=== PATIENT | male | born 1955 | race Caucasian/White ===

== ENCOUNTER 2019-06-25 13:42 | Emergency (ER) | payer BC, SELFPAY ==
[2019-06-25 13:54] VITALS: BP 143/70; PULSE 66; RESP 22; TEMP 37.2; O2SAT 100
--- NOTE | 2019-06-25 14:02 | ED.GENADULT ---
HPI - General Adult General Chief complaint: Upper Respiratory Infection Stated complaint: sinus pressure/tired Time Seen by Provider: 06/25/19 14:03 Source: patient and RN notes reviewed Mode of arrival: ambulatory Limitations: no limitations History of Present Illness HPI narrative: This is a 63 years old male presents to the office for an evaluation of possible sinus infection. Onset about two weeks ago, with head congestion/headache, stuffy nose and alittle cough. Denies fever; however reports feeling achy at night. Symptoms slightly better when he took Mucinex and it got worse again about five days ago. He does not smoke. 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 He did recieved influenza vaccine for the season. Related Data Allergies Allergy/AdvReac Type Severity Reaction Status Date / Time No Known Allergies Allergy Unverified 05/21/17 13:42 Review of Systems Review of Systems: Narrative: CONSTITUTIONAL: Denies fever. Reports achy, chills and malaise EYES: Denies visual changes, redness, discharge. ENT: Denies otalgia. CARDIOVASCULAR: Denies chest pain RESPIRATORY: Denies dyspnea, wheezing GASTROINTESTINAL: Denies abdominal pain, nausea, vomiting, diarrhea. GENITOURINARY: Denies urinary symptoms or discharge SKIN: Denies rash MUSCULOSKELETAL: Denies acute back pain NEUROLOGIC: Denies lightheaded PMFSH Past Medical History Medical History (Updated 06/25/19 @ 14:11 by ILIANA Rosa) BMI 28.0-28.9,adult Colonoscopy planned High cholesterol Hip pain, right Hyperlipidemia, unspecified Hypertension Male erectile dysfunction, unspecified On correction drug therapy Family History Family History Father COPD (chronic obstructive pulmonary disease) Renal failure Emphysema lung Mother Herpes zoster Hodgkins disease Social History Social History (Updated 06/25/19 @ 14:14 by ILIANA Rosa) Smoking status: Never smoker Comments At time of signature, I agree with nursing past medical, surgical, social and family history. There is no relevant family history pertinent to the presenting complaint. Exam Narrative: Exam Narrative: GENERAL: This is a well-nourished, well-developed patient, in no apparent distress. EYES: Sclera clear/white. Vision is grossly intact. EARS: External ears normal, auditory canals clear and without drainage, TMs normal without perforation. Hearing grossly intact. NOSE: External nose normal with no obvious nasal discharge, nares without redness, no rhinorrhea. Sinus tendneress noted THROAT: Mucous membranes moist, posterior pharynx erythema with drainage NECK: Neck supple, non-tender with lymphadenopathy CARDIOVASCULAR: Regular rate and rhythm without murmurs, gallops, or rubs. RESPIRATORY: Clear to auscultation. Breath sounds equal bilaterally. No wheezes, rales, or rhonchi. GASTROINTESTINAL: Abdomen soft, non-tender, nondistended. Bowel sounds are active. No guarding. SKIN: warm, intact with no suspicious lesions or rash, good texture and turgor. NEURO: awake, alert, and oriented to person, place and time. There were no obvious focal neurologic abnormalities. Steady gait [place] Coma Scale Eye Opening: Spontaneous 4 [place] Coma Scale Motor: Obeys Commands 6 [place] Coma Scale Verbal: Oriented 5 Course Vital Signs Vital signs: Vital Signs Temperature 98.9 F 06/25/19 13:54 Pulse Rate 66 06/25/19 13:54 Respiratory Rate 22 H 06/25/19 13:54 Blood Pressure 143/70 H 06/25/19 13:54 Pulse Oximetry 100 06/25/19 13:54 Temperature 98.9 F 06/25/19 13:54 Pulse Rate 66 06/25/19 13:54 Respiratory Rate 22 H 06/25/19 13:54 Blood Pressure 143/70 H 06/25/19 13:54 Pulse Oximetry 100 06/25/19 13:54 Medical Decision Making MDM Narrative Medical decision making narrative: Discharge instructions reviewed with patient, elevated BP noted; recommend follow up with PCP in 1-2week The
== END 2019-06-25 14:18 | disposition home or self-care (01) ==
PROVIDERS: Emergency Provider Nurse Practitioner; PCP Internal Medicine
DX: J00 Acute nasopharyngitis [common cold] (principal); J01.90 Acute sinusitis, unspecified; E78.00 Pure hypercholesterolemia, unspecified; E78.5 Hyperlipidemia, unspecified; I10 Essential (primary) hypertension
CPT/HCPCS: 99213; G0463

== ENCOUNTER 2020-07-11 10:00 | Outpatient (CLI) | payer BC, SELFPAY | END 2020-07-11 10:01 | disposition home or self-care (01) | LOC: ANHCOVIDVC 10:00 | PROVIDERS: PCP Internal Medicine | DX: Z23 Encounter for immunization (principal) | CPT/HCPCS: 0001A; 91300 ==

== ENCOUNTER 2020-08-01 10:13 | Outpatient (CLI) | payer BC, SELFPAY | END 2020-08-01 10:14 | disposition home or self-care (01) | LOC: ANHCOVIDVC 10:13 | PROVIDERS: PCP Internal Medicine | DX: Z23 Encounter for immunization (principal) | CPT/HCPCS: 0002A; 91300 ==

== ENCOUNTER 2022-07-04 00:35 | Day surgery (SDC) | payer BC, SELFPAY ==
[2022-06-20 13:03] VITALS: BMI 27.1
--- NOTE | 2022-07-03 12:59 | P.HP_ITS ---
History of Present Illness History of Present Illness Consent: Risks, benefits, and alternatives have been discussed and questions answered. Patient agrees to proceed with procedure. Chief complaint: hx colon polyps Narrative: Mk Galan is a 66 year old male was referred for colon cancer screening. He had a polyp removed at the time of his last colonoscopy 5 years ago. Review of Systems Review of Systems: All systems reviewed & are unremarkable except as noted in HPI and below PMFSH Past Medical History Medical History BMI 28.0-28.9,adult Colonoscopy planned High cholesterol Hip pain, right Hyperlipidemia, unspecified Hypertension Male erectile dysfunction, unspecified On buttermaker continuous churn drug therapy Family History Family History Father COPD (chronic obstructive pulmonary disease) Renal failure Emphysema lung Mother Herpes zoster Hodgkins disease Father Family history of kidney disease Family history of chronic obstructive pulmonary disease Family history of emphysema Mother Family history of Hodgkin's lymphoma Social History Social History Smoking status: Never smoker Alcohol intake: never Alcohol use details: RARELY Substance use: never Substance use type: does not use Lack of Transportation: No Lack of Food: Never True Current Housing: I Have Housing Concerned About Future Housing: No Difficulty Paying Gas/Electric Bills: No Difficulty Paying for Meds: No Currently Unemployed: No Education: High School Diploma/GED Difficulty w/ Childcare or Family Care: No Living arrangements: with family Spiritual care concerns: No Meds Home Medications and Allergies Home Medications Medication Instructions Recorded Confirmed Type amlodipine 10 mg tablet See Rx Instructions .Route 12/10/21 07/04/22 Rx .COMPLEX #90 tabs simvastatin 40 mg tablet 40 mg PO DAILY #90 tabs 04/15/22 07/04/22 Rx sildenafil (pulm.hypertension) 20 60 mg PO ONCE #60 tabs 04/23/22 07/04/22 Rx mg tablet atenolol 25 mg tablet See Rx Instructions .Route 06/04/22 07/04/22 Rx .COMPLEX #180 tabs Allergies Allergy/AdvReac Type Severity Reaction Status Date / Time No Known Allergies Allergy Verified 07/04/22 06:22 Exam Const: General: alert Orientation/consciousness: patient oriented x3 Resp: Auscultation: clear to auscultation bilaterally Cardio: Rhythm: regular rhythm GI: GI Palp: Yes Soft to palpation and No Tenderness to palpation present (GI) Neuro: General: patient oriented x3 Assessment and Plan Assessment and plan (1) Colon cancer screening: Code(s): Z12.11 - Encounter for screening for malignant neoplasm of colon Status: Acute Assessment and Plan: Colonoscopy with possible biopsy or polypectomy or cautery or injection of substances.
[2022-07-04 06:25] VITALS: BP 131/85; PULSE 57; RESP 16; TEMP 36.2; O2SAT 100; BMI 27.3
[2022-07-04] MEDS: LACTATED RINGERS 1,000 ML 150 ML IV CONT (06:36)
--- NOTE | 2022-07-04 07:13 | WPDANESEPPF ---
Anes - Initial Pre Proc Eval Procedure: Operation Date: 07/04/22 07:30 Proposed Procedures p Colonoscopy - Amarjit Martínez MD Date/Time: 07/04/22 07:13 Surgeon: Amarjit Martínez MD Pre Op Diagnosis: hx colon polyps Patient Data Age: 66 Gender: M Height: 1.83 m Weight: 91.6 kg Last Vital Signs Temp 97.2 F L 07/04/22 06:25 Pulse 57 L 07/04/22 06:25 Resp 16 07/04/22 06:25 BP 131/85 07/04/22 06:25 Pulse Ox 100 07/04/22 06:25 O2 Del Method Room Air 07/04/22 06:25 Allergies Allergy/AdvReac Type Severity Reaction Status Date / Time No Known Allergies Allergy Verified 07/04/22 06:22 Home Medications Medication Instructions Recorded Confirmed Type amlodipine 10 mg tablet See Rx Instructions .Route 12/10/21 07/04/22 Rx .COMPLEX #90 tabs simvastatin 40 mg tablet 40 mg PO DAILY #90 tabs 04/15/22 07/04/22 Rx sildenafil (pulm.hypertension) 20 60 mg PO ONCE #60 tabs 04/23/22 07/04/22 Rx mg tablet atenolol 25 mg tablet See Rx Instructions .Route 06/04/22 07/04/22 Rx .COMPLEX #180 tabs Patient hx anesthesia problems: none Family hx anesthesia problems: none Results Review: All pre-operative results and documents have been reviewed as part of the pre-operative evaluation. [facility] Past Medical History Medical History BMI 28.0-28.9,adult Colonoscopy planned High cholesterol Hip pain, right Hyperlipidemia, unspecified Hypertension Male erectile dysfunction, unspecified On half-way drug therapy Family History Family History Father COPD (chronic obstructive pulmonary disease) Renal failure Emphysema lung Mother Herpes zoster Hodgkins disease Father Family history of kidney disease Family history of chronic obstructive pulmonary disease Family history of emphysema Mother Family history of Hodgkin's lymphoma Social History Social History Smoking status: Never smoker Alcohol intake: never Alcohol use details: RARELY Substance use: never Substance use type: does not use Lack of Transportation: No Lack of Food: Never True Current Housing: I Have Housing Concerned About Future Housing: No Difficulty Paying Gas/Electric Bills: No Difficulty Paying for Meds: No Currently Unemployed: No Education: High School Diploma/GED Difficulty w/ Childcare or Family Care: No Living arrangements: with family Spiritual care concerns: No Anes - Eval Final PreProcedure Day of Procedure 07/04/22 07:13 Patient weight: normal Heart: regular rate and rhythm Lungs: clear to auscultation Airway: Mallampati scale class II Neurological: alert and oriented Last oral intake: >/= 8 hours ASA classification: II Emergent: no Anesthetic plan: proceed Anesthesia type and monitoring: general GIVS and standard monitoring Results Review: All pre-operative results and documents have been reviewed as part of the pre-operative evaluation. Informed Consent: The patient's anesthetic plan and its attendant risks and benefits were discussed with the patient/family/POA. Questions were solicited and answers provided to the satisfaction of the patient/family/POA.
[2022-07-04 07:49] VITALS: BP 103/65; PULSE 54; RESP 21; O2SAT 100
[2022-07-04 07:59] VITALS: BP 124/72; PULSE 52; RESP 17; O2SAT 100
[2022-07-04 08:06] VITALS: BP 134/80; PULSE 51; RESP 19; O2SAT 98
== END 2022-07-04 08:16 | disposition home or self-care (01) ==
PROVIDERS: PCP Internal Medicine; Visit Provider Internal Medicine Gastroenterology
PROC: 0DJD8ZZ Inspection of Lower Intestinal Tract, Via Natural or Artificial Opening Endoscopic (ICD-10-PCS; CPT 45378; principal; 2022-07-04 07:30)
DX: Z12.11 Encounter for screening for malignant neoplasm of colon (principal); K64.8 Other hemorrhoids; Z86.010 Personal history of colon polyps; I10 Essential (primary) hypertension; E78.00 Pure hypercholesterolemia, unspecified
CPT/HCPCS: 45378; J2704; J7120